=== PATIENT | female | born 1950 ===

== ENCOUNTER 2023-02-15 10:45 | Outpatient (CLI) | payer MEDICARE, OTHER ==
[2023-02-15] VITALS (19 sets, daily range): BP systolic 50–145; BP diastolic 21–83; PULSE 72–102
== END 2023-02-15 23:59 | disposition home or self-care (01) ==
LOC: CARD DIAG 10:45
PROVIDERS: ATTEND Internal Medicine Interventional Cardiology
DX: R42 Dizziness and giddiness (principal)
CPT/HCPCS: 93660